=== PATIENT | female | born 1985 | race Caucasian/White ===

== ENCOUNTER 2017-07-27 00:16 | Inpatient (IN) | payer OTHER ==
[~2017-07-27 00:16] MED LIST: LIDOCAINE HCL 50 ML VIAL PERI PRN; MISOPROSTOL 100 MCG TABLET VG PRN; ONDANSETRON HCL/PF 2 MG/ML VIAL IV PRN; OXYTOCIN/DEXTROSE 5%-WATER 30 UNITS/500 ML BAG IV ONE
[2017-07-27] MEDS: RINGER'S SOLUTION,LACTATED 1,000 ML IV ONE ×2 (01:18→15:00)
[2017-07-27] MEDS: CLINDAMYCIN PHOSPHATE 900 MG in DEXTROSE 5 % IN WATER 100 ML IV SCH ×6 (01:20→16:20)
[2017-07-27] MEDS ORDERED: TERBUTALINE SULFATE 1 MG/ML VIAL SC STA ×2 (04:09→16:08)
[2017-07-27] MEDS ORDERED: DEXTROSE 5%-LACTATED RINGERS 1,000 ML IV PRN ×2 (06:42→08:19)
[2017-07-27] MEDS: DEXTROSE 5%-LACTATED RINGERS 1,000 ML IV PRN ×2 (08:13→16:15)
[2017-07-27] MEDS ORDERED: OXYTOCIN/DEXTROSE 5%-WATER 30 UNITS/500 ML BAG IV ONE ×3 (08:21→22:00)
--- NOTE | 2017-07-27 08:31 | PN ---
Progess Note - Interim Narrative: 07/27/17 08:24 Patient rating contractions as mild though they palpate moderate. Vital signs stable. Status post Cytotec 25 g 1 at 1:30 FHT: 120 baseline, episodes through the night of decreased beat to beat variability and recurrent late decelerations which resolved with terbutaline subcutaneous 1 and D5 LR IV fluids. Contractions q 2-3 min Cervix: 1/50/-2 at 345 Impression: Intrauterine at 40 2/7 weeks elective induction of labor Plan: Discussed the risks, benefits, alternatives to section with patient if nonreassuring tracing reoccurs/persists.
--- NOTE | 2017-07-27 09:20 | PN ---
Progess Note - Interim Narrative: 07/27/17 09:18 Called to see patient for recurrent late decelerations. Cervix 3/75/-2, AROM- moderate/thick meconium. FSE and IUPC placed. tracing overall reassuring with good beat to beat variability and 1 late deceleration in the past 6 contractions. We'll continue to monitor closely. Surgery and ped's notified.
--- NOTE | 2017-07-27 12:44 | PN ---
Progess Note - Interim Narrative: 07/27/17 12:42 Patient becoming more uncomfortable with contractions Vital signs stable. FHT: 120 baseline, reassuring Contractions q 2-4 min with occasional couplets Cervix: /-2 Impression: Intrauterine at 40 1/7 weeks, induction of labor, GBS carrier, improved tracing Plan: Continue present plan
[2017-07-27] MEDS ORDERED: RINGER'S SOLUTION,LACTATED 1,000 ML IV ONE ×3 (13:26→21:00)
[2017-07-27] MEDS ORDERED: ONDANSETRON HCL/PF 2 MG/ML VIAL IV PRN (13:35)
[2017-07-27] MEDS ORDERED: BUPIVACAINE HCL/0.9 % NACL/PF 250 ML EP PRN ×2 (13:35→14:14)
[2017-07-27] MEDS ORDERED: NALOXONE HCL 1 MG/1 ML SYRG IV PRN (13:35)
[2017-07-27] MEDS ORDERED: BUPIVACAINE HCL/PF 30 ML VIAL EP SCH (13:45)
[2017-07-27] MEDS ORDERED: fentaNYL CITRATE/PF 50 MCG/ML AMPUL IT SCH (14:15)
--- NOTE | 2017-07-27 14:20 | OR ---
Anesthesia Pre Procedure Eval Date of Service: 07/27/17 Pre Procedure Evaluation: Anesthesia Pre Procedure Evaluation Heart Rate: 95 Blood Pressure: 114/80 Temperature: 6.2C Respiratory Rate: 18 SaO2: 95 DATE: 07/27/2017 TIME: 1420 INDICATIONS: Active labor, labor pain PAST MEDICAL HISTORY: Primipara patient in active labor, beginning to receive Pitocin, requesting labor analgesia History of GERD: No History of smoking: No History of sleep apnea: No EXAM: Heart regular; lungs clear ASSESSMENT OF MEDICAL STATUS: Appropriate candidate for labor analgesia PLANNED PROCEDURE: Combination spinal epidural for labor analgesia Home Medications: HOME MEDICATIONS Multivitamins [Multivitamin David] 1 cap PO DAILY 02/19/15 [Last Taken Unknown] oxyCODONE HCL/ACETAMINOPHEN [Percocet 5 MG/325 MG] 1 tab PO Q6H PRN #20 tablet 02/21/15 [Last Taken Unknown]
--- NOTE | 2017-07-27 15:24 | OR ---
Anesthesia Procedure Note - Anesthesia Procedure Note Date of Service: 07/27/17 Narrative: 07/27/17 14:43 ANESTHESIA PROCEDURE NOTE Date of Procedure: 07/27/2017 Time of procedure: 1420. Performed by: PAUL Linares CRNA, MSN Oracle Technical Architect: Amanda Sood RN. Preprocedure diagnosis: Active labor, labor pain. Post procedure diagnosis: Same. Procedure:Epidural for labor analgesia L3 4. Indications: Labor pain. Findings: See below. Details of the procedure: The patient was placed on the side of the bed in sitting positionand prepped with DuraPrep then draped in a sterile fashion. Lidocaine 1% was infiltrated to the skin and subcutaneous tissues at the level of the L3 4 interspace. An 18-gauge Touhy needle was used to approach the epidural space with loss of resistance technique. Once loss of resistance was achieved a 27-gauge spinal needle was passed through the epidural needle and CSF was contacted. After CSF returned, 20 mcg of fentanyl was injected in the spinal needle was removed the epidural catheter was then threaded approximately 4 cm in the epidural needle was removed. The catheter was taped in place and after careful aspiration 3 mL of 1.5% lidocaine with 1-200,000 epinephrine was injected without change in maternal heart rate or sensorium. . EBL: Minimal. Fluids: N/A. Specimen: N/A. Post procedure condition: The patient tolerated the procedure well with good relief. No complications were noted. Thank you for this consultation. Jose Hammonds CRNA, ARNP, MSN
[2017-07-27] MEDS ORDERED: TERBUTALINE SULFATE 1 MG/ML VIAL ONE (16:05)
--- NOTE | 2017-07-27 20:21 | PN ---
Progess Note - Interim Narrative: 07/27/17 20:15 Patient [comfortable with epidural] Vital signs stable. Pitocin at 1 mu/min. FHT: 140 baseline, recurrent late decelerations Contractions q 3-5 min Cervix: Rim/0 Impression: Intrauterine at 40 1/7 weeks elective induction of labor with nonreassuring tracing Plan: OR crew called for section. When OR crew is ready to proceed with section, will have patient do a trial push and/or operative vaginal delivery if complete and +2 station. Risks/benefits/alternatives discussed with patient and spouse.
[2017-07-27] MEDS ORDERED: OXYTOCIN 20 UNITS in RINGER'S SOLUTION,LACTATED 1,000 ML IV ONE (20:22)
[2017-07-27] MEDS ORDERED: RINGER S LACTATED IV ONE (20:55)
[2017-07-27] MEDS ORDERED: OXYTOCIN IV ONE (20:55)
[2017-07-27] MEDS ORDERED: GENTAMICIN SULFATE 400 MG in DEXTROSE 5 % IN WATER 100 ML IV ONE ×2 (21:00)
[2017-07-27] MEDS ORDERED: BISACODYL 10 MG SUPP.RECT RC PRN (22:00)
[2017-07-27] MEDS ORDERED: BENZOCAINE/MENTHOL 81 SPRAY CAN TP PRN (22:00)
[2017-07-27] MEDS ORDERED: GLYCERIN/WITCH HAZEL LEAF 40 APPL BOX TP PRN (22:00)
[2017-07-27] MEDS ORDERED: HYDROCORTISONE 30 APPL TUBE TP PRN (22:00)
[2017-07-27] MEDS ORDERED: SENNOSIDES 8.6 MG TABLET PO PRN (22:00)
[2017-07-27] MEDS ORDERED: oxyCODONE HCL/ACETAMINOPHEN 1 TAB TABLET PO PRN (22:00)
--- NOTE | 2017-07-27 22:10 | OR ---
Operative Report - Dictated Report Narrative: Indication: Suspicion of potential/immediate compromise Pre Procedure Patient was counseled to the risk, benefits, and alternatives to operative vaginal delivery. All questions were answered. Patient consented to proceed with operative vaginal delivery. heart rate interpretation: Persistent recurrent late decelerations becoming deeper and longer with descent, decreased beat to beat variability, EFW 3300 g, station +2, Position of head TAN, Anesthesia: epidural Cervix was completely dilated and effaced, maternal- size appropriate for application, bladder was emptied Procedure Leach/Luikart forceps easily applied, hinge/lock approximated without difficulty, 3 pulls, advancement in station with each pull, degree of rotation 30 rotation Post Procedure Viable female born at 2058 on 07/27/2018 with Apgars 7 and 8, weighing 3224 g, in TAN position. Cord gases collected, Placenta spontaneously delivered, EBL 250 mL,, mild erythema above the right brow of fetus, no shoulder dystocia Lacerations: 5 cm left sulcus laceration and 4 cm second-degree vaginal laceration repaired with 0 Vicryl and 3-0 Vicryl Rapide History for MU Definition: * The number of deliveries resulting in a live the patient experienced prior to current hospitalization * The previous delivery of live twins or any live multiple gestation is considered one live event. *If primagravida or nulliparous is documented select zero for the number of previous live births. Live Events: 0
[2017-07-28] MEDS: IBUPROFEN 800 MG TABLET PO PRN ×3 (00:08→16:07)
[2017-07-28] MEDS: oxyCODONE HCL/ACETAMINOPHEN 1 TAB TABLET PO PRN ×4 (01:11→21:22)
[2017-07-28] MEDS: DOCUSATE SODIUM 100 MG CAPSULE PO SCH ×2 (10:02→21:22)
--- NOTE | 2017-07-28 14:47 | PN ---
Subjective - Date and Time Seen Date: 07/28/17 Time: 14:47 Objective - Vitals Vitals: Last Vital Signs Temp 36.1 C L 07/28/17 07:09 Pulse 82 07/28/17 07:09 Resp 16 07/28/17 03:15 BP 105/64 07/28/17 07:09 Pulse Ox 100 07/28/17 07:09 Patient complains of mild tailbone pain. Lochia wnl Abdomen - soft, nontender Uterus - firm, at umbilicus - 1 No calf tenderness Impression: day #1 - s/p spontaneous vaginal delivery. Plan: Continue routine care Cauti Physician Documentation - Urinary Catheter Management Urethral ([facility]) Date of Insertion: 07/27/17 Time of Insertion: 15:30 Date of Removal: 07/27/17 Time of Removal: 20:55
[2017-07-29] MEDS: IBUPROFEN 800 MG TABLET PO PRN ×4 (01:02→23:52)
[2017-07-29] MEDS ORDERED: RHO(D) IMMUNE GLOBULIN 300 MCG DISP.SYRIN IM ONE (03:28)
--- NOTE | 2017-07-29 09:51 | PN ---
Subjective - Date and Time Seen Date: 07/29/17 Time: 09:50 Objective - Vitals Vitals: Last Vital Signs Temp 36.3 C L 07/29/17 01:02 Pulse 84 07/29/17 01:02 Resp 16 07/29/17 01:02 BP 108/56 07/29/17 01:02 Pulse Ox 98 07/29/17 01:02 Patient denies complaints. Lochia wnl Abdomen - soft, nontender Uterus - firm, at umbilicus - 2 No calf tenderness Impression: day #2 - s/p spontaneous vaginal delivery. Plan: Routine discharge instructions. Baby with elevated bilirubin will be staying over the next day or 2 so mom will board for baby. Cauti Physician Documentation - Urinary Catheter Management Urethral ([facility]) Date of Insertion: 07/27/17 Time of Insertion: 15:30 Date of Removal: 07/27/17 Time of Removal: 20:55
[2017-07-29] MEDS: DOCUSATE SODIUM 100 MG CAPSULE PO SCH ×2 (10:05→21:05)
[2017-07-29] MEDS: PRENATAL VITAMIN PO SCH ×2 (10:13→16:45)
[2017-07-29] MEDS: oxyCODONE HCL/ACETAMINOPHEN 1 TAB TABLET PO PRN ×3 (14:31→23:52)
[2017-07-29 21:36] VITALS: BP 109/65
== END 2017-07-29 23:59 | disposition home or self-care (01) | DRG 775 ==
LOC: OB 00:16 → MS 07-29 09:06
PROVIDERS: ADMIT Obstetrics & Gynecology; ATTEND Obstetrics & Gynecology
PROC: 10D07Z3 Extraction of Products of Conception, Low Forceps, Via Natural or Artificial Opening (ICD-10-PCS; principal; 2017-07-27)
PROC: 0KQM0ZZ Repair Perineum Muscle, Open Approach (ICD-10-PCS; 2017-07-27)
PROC: 10907ZC Drainage of Amniotic Fluid, Therapeutic from Products of Conception, Via Natural or Artificial Opening (ICD-10-PCS; 2017-07-27)
PROC: 4A1H7CZ Monitoring of Products of Conception, Cardiac Rate, Via Natural or Artificial Opening (ICD-10-PCS; 2017-07-27)
PROC: 00HU33Z Insertion of Infusion Device into Spinal Canal, Percutaneous Approach (ICD-10-PCS; 2017-07-27)
DX: O76 Abnormality in fetal heart rate and rhythm complicating labor and delivery (principal); O77.0 Labor and delivery complicated by meconium in amniotic fluid; O70.1 Second degree perineal laceration during delivery; D25.9 Leiomyoma of uterus, unspecified; O99.824 Streptococcus B carrier state complicating childbirth; Z3A.40 40 weeks gestation of pregnancy; Z37.0 Single live birth
CPT/HCPCS: 59025; 85460; 88307; J2790

== ENCOUNTER 2020-01-24 00:11 | Inpatient (IN) ==
[2020-01-24] MEDS ORDERED: OXYTOCIN/DEXTROSE 5%-WATER 30 UNITS/500 ML BAG IV ONE ×2 (00:14→17:24)
[2020-01-24] MEDS ORDERED: ONDANSETRON 4 MG TAB.RAPDIS PO PRN (00:14)
[2020-01-24] MEDS: DEXTROSE 5%-LACTATED RINGERS 1,000 ML IV PRN ×2 (01:04→15:21)
--- NOTE | 2020-01-24 07:38 | HP ---
Chief Complaint - Chief Complaint Date of Service: 01/24/20 Time of Service: 07:31 Chief Complaint: induction of labor History of Present Illness: 34 yo at 39 5/7 weeks admitted for induction of labor due to advanced maternal age and oligohydramnios. This complicated by anemia, AMA, oligohydramnios. Rh positive Rubella immune GBS negative Medical History (Last Reviewed 01/24/20 @ 01:39 by Nakia Hill RN) Anemia Onset Date: ~12/2014-Informed she was anemic when she gave blood. 04/2017-w/. 10.21.19-w/ Fatigue Onset Date: 05/22/16 Body piercing Onset Date: Unknown Eczema Onset Date: Unknown Hemorrhoids Onset Date: Unknown Seasonal allergies Onset Date: Unknown rhinitis, sinus pressure, RAVI, watery eyes Uterine fibroid Onset Date: ~12/2014 Dysmenorrhea Onset Date: 12/11/14 Hydrosalpinx Onset Date: 01/03/15 noted on u/s Mastitis Onset Date: 08/28/17 Menorrhagia Onset Date: 12/11/14 PID (pelvic inflammatory disease) Onset Date: ~2003 Post depression Onset Date: 08/08/17 Vulvar lesion Onset Date: 12/11/14 Vulvitis Onset Date: 05/22/16 Asthma Onset Date: Unknown as a child. no hospitalizations. Surgical History: Surgical History (Last Reviewed 01/24/20 @ 01:39 by Nakia Hill RN) History of hysteroscopy Onset Date: 02/21/15 w/chromotubal perfusion History of laparoscopy Onset Date: 02/21/15 w/lysis of adhesions History of salpingectomy Onset Date: 02/21/15 Right-chronic salpingitis and hydrosalpinx Family History: Family History (Last Reviewed 01/24/20 @ 01:39 by Nakia Hill RN) Mother Thyroid disease Hypertension Grandmother Myocardial infarction Grandmother CHF (congestive heart failure) Grandfather Cancer Grandfather Lung infection Aunt Thyroid disease x3 aunts Family/Other Thyroid disease Social History: (Last Reviewed 01/24/20 @ 01:39 by Nakia Hill RN) Social History: adopted: No fpc: No Marital status: household members: spouse, children number of children: 1 current occupational status: employed current occupation: [employer]visor current occupational exposures/hazards: Yes 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 Highest education level completed: high school graduate Sexually Active: Yes Service: No Tobacco: Smoking Status: Former smoker Alcohol: alcohol intake: current alcohol intake frequency: holiday/special occasion Substance Use: substance use type: does not use Dietary Habits: caffeine: No Exercise: frequency: other Review Of Systems (GEN) - Review of Systems Generalized/Overall Review: Present: No Symptoms Reported EENTM: Present: No Symptoms Reported Respiratory: Present: No Symptoms Reported Cardiac: Present: No Symptoms Reported Abdominal: Present: No Symptoms Reported Genitourinary: Present: No Symptoms Reported Musculoskeletal: Present: No Symptoms Reported Neurological: Present: No Symptoms Reported Skin: Present: No Symptoms Reported Endocrine: Present: No Symptoms Reported Allergies/Adverse Reactions: Allergies Allergy/AdvReac Type Severity Reaction Status Date / Time amoxicillin Allergy Severe Hives Verified 01/24/20 00:25 cefdinir Allergy Severe Hives Verified 01/24/20 00:25 Home Medications: HOME MEDICATIONS [place]-3 Fatty Acids/Fish Oil [Fish Oil 1,000 mg Capsule] 1 ea PO DAILY 07/28/17 [Last Taken 01/23/20] Vits96/Iron Fum/Folic [ S] 1 tab PO DAILY 07/28/17 [Last Taken 01/23/20] ferrous sulfate 325 mg (65 mg iron) tablet 325 mg PO DAILY #30 tab 10/21/19 [Last Taken 01/22/20] ascorbic acid (vitamin C) 500 mg tablet 500 mg PO DAILY 11/07/19 [Last Taken 01/22/20] famotidine 20 mg tablet 20 mg PO BID #60 tab 11/08/19 [Last Taken 01/23/20] Exam - Exam Vital Signs: Vital Signs - Last Taken Temp 36.3 C 01/24/20 01:11 Pulse 87 01/24/20 01:11 Resp 18 01/24/20 01:11 BP 120/77 01/24/20 01:11 Pulse Ox 99 01/24/20 01:11 Constitutional: Present: Alert, Oriented x3, Cooperative ENT Exam: Present: hearing grossly normal Neck: Absent: thyromegaly Breasts: Present: Exam deferred Respiratory: Present: lungs clear, no respiratory distress Cardiovascular/Chest: Present: regular rate, rhythm, edema - b/l LE Abdomen: Present: soft, nontender, no rebound tenderness, other - gravid /Rectal: Present: Other - cervix - 2/60/-2 on admission per nurse Extremity: Present: no calf tenderness, pedal edema Skin Exam: Present: normal color, warm/dry, no cyanosis Neurologic: Present: alert, normal mood/affect, oriented x 3 Appearance: Present: appropriate appearance, appropriate insight Eye contact: Present: cooperative, good eye contact Thoughts: Present: normal thought pattern, normal mood /affect Assessment/Plan - Assessment/Plan (1) Advanced maternal age (AMA) in Assessment: Admit for pitocin induction of labor. Epidural PRN. Problem: Acute (2) Oligohydramnios in third trimester Problem: Acute Qualifiers: Fetus number: single or unspecified fetus Qualified Code(s): O41.03X0 - Oligohydramnios, third trimester, not applicable or unspecified (3) Anemia Problem: Acute Qualifiers: Anemia type: iron deficiency Iron deficiency anemia type: inadequate dietary iron intake Qualified Code(s): D50.8 - Other iron deficiency anemias
--- NOTE | 2020-01-24 13:13 | PN ---
Progess Note - Interim Date: 01/24/20 Time: 13:12 Narrative: 01/24/20 13:12 Patient rating her contractions as mild Vital signs stable. Pitocin at 11 mu/min. FHT: 120 baseline, reassuring contractions q 2-3 min Cervix: 4/50/-2, AROM-clear Impression: Intrauterine at 39-5/7 weeks induction of labor for advanced maternal age and oligohydramnios Plan: If no cervical power and recovery shift engineer the next [address] an IUPC to assure adequate contractions.
[2020-01-24] MEDS ORDERED: LIDOCAINE HCL 50 ML VIAL IJ PRN (15:18)
[2020-01-24] MEDS: RINGER'S SOLUTION,LACTATED 1,000 ML IV ONE ×2 (15:56→16:57)
[2020-01-24] MEDS ORDERED: NALOXONE HCL 1 MG/1 ML SYRG IV PRN ×2 (16:08→16:24)
[2020-01-24] MEDS ORDERED: ONDANSETRON HCL/PF 2 MG/ML VIAL IV PRN ×2 (16:08→16:24)
[2020-01-24] MEDS ORDERED: BUPIVACAINE HCL/0.9 % NACL/PF 250 ML EP PRN ×2 (16:08→16:24)
[2020-01-24] MEDS ORDERED: BUPIVACAINE HCL/PF 30 ML VIAL EP SCH (16:15)
[2020-01-24] MEDS ORDERED: fentaNYL CITRATE/PF 50 MCG/ML AMPUL IT SCH ×2 (16:30)
[2020-01-24] MEDS ORDERED: SENNOSIDES 8.6 MG TABLET PO PRN (17:24)
[2020-01-24] MEDS ORDERED: oxyCODONE HCL/ACETAMINOPHEN 1 TAB TABLET PO PRN (17:24)
[2020-01-24] MEDS ORDERED: BISACODYL 10 MG SUPP.RECT RC PRN (17:24)
[2020-01-24] MEDS ORDERED: GLYCERIN/WITCH HAZEL LEAF 40 APPL BOX TP PRN (17:24)
[2020-01-24] MEDS ORDERED: BENZOCAINE/MENTHOL 81 SPRAY CAN TP PRN (17:24)
[2020-01-24] MEDS ORDERED: HYDROCORTISONE 30 APPL TUBE TP PRN (17:24)
--- NOTE | 2020-01-24 17:42 | OR ---
Operative Report - Dictated Report Narrative: Indication: 4-minute deceleration down to the 50s Pre Procedure: Patient was counseled to the risk, benefits, and alternatives to operative vaginal delivery. All questions were answered. Patient consented to proceed with operative vaginal delivery. Cervix was completely dilated and effaced, maternal- size appropriate for application, bladder was emptied, flexion point identified, cup choice appropriate for application site, maternal tissue excluded from vacuum cup heart rate interpretation: Baseline 120 with early decelerations proceeding a 4-minute deceleration down to the 50s, EFW 3600 g, station +2, Position of head rotated from ANAHY to TAN Anesthesia: None Procedure: Total application time of the Kiwi Pro with Palm Pump was 29 seconds Maximum vacuum achieved was 500 mm Hg Number of pulls - 1 pull to delivery of head. Number of involuntary releases - 2. Because of poor maternal propulsive effort after the head delivered to the ears, attempt was made to use the vacuum to help deliver the rest of the head but was unable to get a good seal because of extensive hair. Advancement in station with each pull Degree of rotation 0-45 Post Procedure: Viable male born at 1650 on 01/24/2021 with Apgars 7 and 9, weighing 3572 g and ANAHY position rotated to TAN position to deliver shoulders. Cord clamping delayed 30 seconds then baby transferred to warmer. Placenta spontaneously delivered EBL 100 mL Cord gases not collected 2nd degree vaginal laceration (3 cm) repaired with 3-0 Vicryl Rapide. 18 mL of 1% lidocaine local used for repair. 2 cm inclusion cyst excised. No injury, no shoulder dystocia History for MU History for Definition: * The number of deliveries resulting in a live the patient experienced prior to current hospitalization * The previous delivery of live twins or any live multiple gestation is considered one live event. *If primagravida or nulliparous is documented select zero for the number of previous live births. Live Events: Live Events: 1
[2020-01-24] MEDS: IBUPROFEN 800 MG TABLET PO PRN (17:54)
[2020-01-24] MEDS: DOCUSATE SODIUM 100 MG CAPSULE PO SCH (21:18)
[2020-01-25] MEDS: IBUPROFEN 800 MG TABLET PO PRN ×4 (00:29→21:44)
[2020-01-25] MEDS: DOCUSATE SODIUM 100 MG CAPSULE PO SCH ×3 (07:06→21:45)
[2020-01-25] MEDS: PRENATAL VITS96/IRON FUM/FOLIC 1 TAB TABLET PO SCH (08:18)
[2020-01-25] MEDS: FERROUS SULFATE 325 MG TABLET PO SCH (08:18)
[2020-01-25] MEDS: ASCORBIC ACID 500 MG TABLET PO SCH (08:19)
[2020-01-25] MEDS: OMEGA-3 FATTY ACIDS 1 CAP CAPSULE PO SCH (08:19)
[2020-01-25] MEDS ORDERED: RHO(D) IMMUNE GLOBULIN 1,500 UNIT SYRINGE IM ONE (09:29)
--- NOTE | 2020-01-25 11:29 | PN ---
Subjective - Date and Time Seen Date: 01/25/20 Time: 11:29 Objective - Vitals Vitals: Last Vital Signs Temp 36.5 C 01/25/20 08:21 Pulse 81 01/25/20 08:21 Resp 14 01/25/20 08:21 BP 133/72 01/25/20 08:21 Pulse Ox 100 01/25/20 08:21 Patient denies complaints. Lochia wnl abdomen - soft, nontender Uterus -firm, at umbilicus - 1 no calf tenderness Impression: day #1 - s/p spontaneous vaginal delivery. Plan: Continue routine care Assessment/Plan - Problems/Diagnosis (1) Advanced maternal age (AMA) in Problem: Acute (2) Oligohydramnios in third trimester Problem: Acute Qualifiers: Fetus number: single or unspecified fetus Qualified Code(s): O41.03X0 - Oligohydramnios, third trimester, not applicable or unspecified (3) Anemia Problem: Acute Qualifiers: Anemia type: iron deficiency Iron deficiency anemia type: inadequate dietary iron intake Qualified Code(s): D50.8 - Other iron deficiency anemias
--- NOTE | 2020-01-26 08:31 | PN ---
Subjective - Date and Time Seen Date: 01/26/20 Time: 08:30 Objective - Vitals Vitals: Last Vital Signs Temp 36.5 C 01/26/20 07:13 Pulse 85 01/26/20 07:13 Resp 18 01/26/20 07:13 BP 116/64 01/26/20 07:13 Pulse Ox 99 01/26/20 07:13 Patient denies complaints. Lochia wnl abdomen - soft, nontender Uterus -firm, at umbilicus - 2 no calf tenderness Impression: day #2 - s/p spontaneous vaginal delivery. Plan: Routine discharge instructions. Awaiting bilirubin on baby. If bilirubin is elevated mom will stay and board for baby. Assessment/Plan - Problems/Diagnosis (1) Advanced maternal age (AMA) in Problem: Acute (2) Oligohydramnios in third trimester Problem: Acute Qualifiers: Fetus number: single or unspecified fetus Qualified Code(s): O41.03X0 - Oligohydramnios, third trimester, not applicable or unspecified (3) Anemia Problem: Acute Qualifiers: Anemia type: iron deficiency Iron deficiency anemia type: inadequate dietary iron intake Qualified Code(s): D50.8 - Other iron deficiency anemias
[2020-01-26] MEDS: OMEGA-3 FATTY ACIDS 1 CAP CAPSULE PO SCH (09:19)
[2020-01-26] MEDS: PRENATAL VITS96/IRON FUM/FOLIC 1 TAB TABLET PO SCH (09:19)
[2020-01-26] MEDS: ASCORBIC ACID 500 MG TABLET PO SCH (09:19)
[2020-01-26] MEDS: FERROUS SULFATE 325 MG TABLET PO SCH (09:19)
[2020-01-26] MEDS: DOCUSATE SODIUM 100 MG CAPSULE PO SCH (09:19)
[2020-01-26] MEDS: IBUPROFEN 800 MG TABLET PO PRN (09:20)
[2020-01-26 12:24] VITALS: BP 112/66
== END 2020-01-26 22:42 | disposition home or self-care (01) | DRG 807 ==
LOC: OB 00:11 → MS 01-26 02:23
PROVIDERS: ADMIT Obstetrics & Gynecology; ATTEND Obstetrics & Gynecology
CPT/HCPCS: 59025; 85460; 88307; 88888; J2790